=== PATIENT | male | born 1975 | race Asian ===

== ENCOUNTER 2024-03-18 11:31 | Inpatient (IN) | payer OTHER ==
[~2024-03-18] VITALS: Ht 165.1 cm; Wt 66.4 kg
[2024-03-18 12:32] LABS: BASOPHILS % (AUTO) 0.4 % (0.0-2.0); EOSINOPHILS % (AUTO) 1.6 % (1.0-6.0); HEMATOCRIT 44.7 % (41-53); HEMOGLOBIN 14.6 g/dL (13.5-17.5); LYMPHOCYTES # (AUTO) 1.7 K/uL (1.0-4.8); LYMPHOCYTES % (AUTO) 17.6 % (22.0-44.0); MEAN CORPUSCULAR HEMOGLOBIN 29.1 pg (26.0-34.0); MEAN CORPUSCULAR HGB CONC 32.7 G/dL (31.0-37.0); MEAN CORPUSCULAR VOLUME 89 fL (80-100); MONOCYTES # (AUTO) 0.5 K/uL (0.1-1.0); MONOCYTES % (AUTO) 5.6 % (2.0-9.0); NEUTROPHILS # (AUTO) 7.2 K/uL (1.8-7.7); NEUTROPHILS % (AUTO) 74.8 % (40.0-70.0); PLATELET COUNT (AUTO) 311 K/uL (150-450); RED BLOOD CELL COUNT(AUTO) 5.01 MIL/uL (4.50-5.90); RED CELL DISTRIBUTION WIDTH 13.2 % (11.5-14.5); WHITE BLOOD COUNT (AUTO) 9.7 K/uL (4.5-11.0)
[2024-03-18 12:44] LABS: ANION GAP 7 mmol/L (8-16); CALCIUM, TOTAL 9.4 mg/dL (8.8-10.5); CARBON DIOXIDE 28 mmol/L (22-29); CHLORIDE 105 mmol/L (98-107); CREATININE 0.81 mg/dL (0.60-1.30); GLOMERULAR FILTR. RATE CALC > 60 mL/min (>60); GLUCOSE,RANDOM 82 mg/dL (70-110); POTASSIUM 4.1 mmol/L (3.5-5.1); SODIUM SERUM 140 mmol/L (136-145); UREA NITROGEN, BLOOD 17 mg/dL (7-18)
[2024-03-18] MEDS ORDERED: ZOLPIDEM TARTRATE 5 MG TABLET PO PRN (12:45)
[2024-03-18] MEDS ORDERED: MAGNESIUM HYDROXIDE SUSPENSION 30 ML UDCUP PO PRN (12:45)
[2024-03-18 12:48] LABS: ALBUMIN 3.6 g/dL (3.4-5.0); BILIRUBIN,DIRECT 0.2 mg/dL (0.00-0.20); BILIRUBIN,TOTAL 0.7 mg/dL (0.1-1.0); TOTAL PROTEIN, SERUM 7.8 g/dL (6.4-8.2)
[2024-03-18 12:56] LABS: LACTIC ACID 1.4 mmol/L (0.4-2.0); TROPONIN I-HIGH SENSITIVITY 8 ng/L (<76)
[2024-03-18 13:05] LABS: ALCOHOL, BLOOD (SERUM) < 3 mg/dL (0-10)
[2024-03-18] MEDS: VANCOMYCIN 1.25 GM/WATER(PEG) 250 ML IV ONE (13:07)
[2024-03-18] MEDS: CLINDAMYCIN 600 MG/D5% WATER 50 ML IV ONE (13:07)
[2024-03-18 13:26] LABS: COVID AG,FIA SOURCE NASAL SWAB
[2024-03-18 13:53] LABS: INFLUENZA TYPE A NEGATIVE FOR TYPE A (NEGATIVE); INFLUENZA TYPE B NEGATIVE FOR TYPE B (NEGATIVE); SARS-COV2 (COVID) ANTIGEN,FIA Negative (Negative)
[2024-03-18 14:27] VITALS: BP 133/87; PULSE 89; RESP 18; TEMP 97.9; O2SAT 100
[2024-03-18] MEDS ORDERED: SODIUM CHLORIDE 0.9% 500 ML IV ONE (14:35)
[2024-03-18] MEDS: HEPARIN SODIUM,PORCINE 5,000 UNITS/ML VIAL SQ SCH (15:58)
[2024-03-18 20:47] VITALS: BP 129/89; PULSE 101; RESP 18; TEMP 97.7; O2SAT 98
[2024-03-18] MEDS: ACETAMINOPHEN 325 MG TABLET PO PRN (20:51)
[2024-03-19 05:18] VITALS: BP 128/85; PULSE 92; RESP 18; TEMP 97.4; O2SAT 98
[2024-03-19 06:56] LABS: APPEARANCE,URINE CLEAR (CLEAR); BILIRUBIN,URINE NEGATIVE (NEGATIVE); COLOR,URINE YELLOW (YELLOW); GLUCOSE, URINE (UA) NEGATIVE (NEGATIVE); KETONES,URINE NEGATIVE (NEGATIVE); LEUKOCYTE ESTERASE ,URINE NEGATIVE (NEGATIVE); NITRATE,URINE NEGATIVE (NEGATIVE); OCCULT BLOOD,URINE NEGATIVE (NEGATIVE); PH,URINE 5.5 (5.0-8.0); PROTEIN,URINE TRACE mg/dL (NEGATIVE); SPECIFIC GRAVITIY, URINE 1.028 (1.003-1.030); UROBILINOGEN,URINE <=1.0 mg/dL (<=1.0)
[2024-03-19 06:59] LABS: PH,URINE DRUG SCREEN 5.5 (5.0-8.0)
[2024-03-19 07:05] LABS: ALCOHOL, URINE DRUG SCREEN NEGATIVE (NEGATIVE); AMPHET/METH SCREEN,URINE POSITIVE (NEGATIVE); BARBITURATE SCREEN, URINE NEGATIVE (NEGATIVE); BENZODIAZEPINES SCREEN,URINE NEGATIVE (NEGATIVE); CANNABINOID SCREEN,URINE NEGATIVE (NEGATIVE); COCAINE SCREEN,URINE NEGATIVE (NEGATIVE); METHADONE SCREEN, URINE NEGATIVE (NEGATIVE); OPIATE SCREEN,URINE NEGATIVE (NEGATIVE); PHENCYCLIDINE SCREEN,URINE NEGATIVE (NEGATIVE)
[2024-03-19 08:12] VITALS: BP 111/83; PULSE 83; RESP 18; TEMP 97.4; O2SAT 98
[2024-03-19] MEDS: FAMOTIDINE 20 MG TABLET PO SCH (08:13)
[2024-03-19] MEDS: SULFAMETHOX/TRIMETH DS 800-160 MG/TABLET PO SCH (12:33)
[2024-03-19 16:25] VITALS: BP 115/83; PULSE 80; PULSE 93; RESP 20; TEMP 97.6; O2SAT 96; O2SAT 98
[2024-03-19 20:22] VITALS: BP 115/84; PULSE 93; RESP 18; TEMP 97.5; O2SAT 99
[2024-03-20 05:41] VITALS: BP 129/91; PULSE 91; RESP 20; TEMP 97.6; O2SAT 98
[2024-03-20 08:25] VITALS: BP 125/86; PULSE 88; RESP 20; TEMP 98.1; O2SAT 98
[2024-03-20] MEDS: PIPERACILLIN/TAZO 3.375 GM/D5W 50 ML IV SCH (12:28)
[2024-03-20] MEDS: VANCOMYCIN HCL 750 MG in DEXTROSE 5%-WATER 250 ML IV SCH (16:18)
[2024-03-20 17:15] VITALS: BP 129/85; PULSE 85; RESP 20; TEMP 98.7; O2SAT 97
[2024-03-20 20:10] VITALS: BP 124/82; PULSE 93; RESP 18; TEMP 97.8; O2SAT 97
[2024-03-21 05:29] VITALS: BP 126/83; PULSE 80; RESP 18; TEMP 97.9; O2SAT 99
[2024-03-21 06:43] LABS: BASOPHILS % (AUTO) 0.3 % (0.0-2.0); EOSINOPHILS % (AUTO) 2.8 % (1.0-6.0); HEMATOCRIT 42.8 % (41-53); HEMOGLOBIN 14.2 g/dL (13.5-17.5); LYMPHOCYTES # (AUTO) 2.1 K/uL (1.0-4.8); MEAN CORPUSCULAR HEMOGLOBIN 28.9 pg (26.0-34.0); MEAN CORPUSCULAR HGB CONC 33.1 G/dL (31.0-37.0); MEAN CORPUSCULAR VOLUME 87 fL (80-100); MONOCYTES # (AUTO) 0.5 K/uL (0.1-1.0); MONOCYTES % (AUTO) 7.1 % (2.0-9.0); NEUTROPHILS % (AUTO) 58.8 % (40.0-70.0); PLATELET COUNT (AUTO) 298 K/uL (150-450); RED CELL DISTRIBUTION WIDTH 13.2 % (11.5-14.5); WHITE BLOOD COUNT (AUTO) 6.8 K/uL (4.5-11.0)
[2024-03-21 06:49] LABS: ANION GAP 6 mmol/L (8-16); CALCIUM, TOTAL 8.8 mg/dL (8.8-10.5); CARBON DIOXIDE 29 mmol/L (22-29); CHLORIDE 105 mmol/L (98-107); CREATININE 0.99 mg/dL (0.60-1.30); GLOMERULAR FILTR. RATE CALC > 60 mL/min (>60); GLUCOSE,RANDOM 94 mg/dL (70-110); POTASSIUM 3.5 mmol/L (3.5-5.1); SODIUM SERUM 140 mmol/L (136-145); UREA NITROGEN, BLOOD 16 mg/dL (7-18)
[2024-03-21 08:06] VITALS: BP 127/91; PULSE 88; RESP 18; TEMP 97.9; O2SAT 99
[2024-03-21 20:00] VITALS: BP 125/79; PULSE 83; RESP 19; TEMP 98.6; O2SAT 98
[2024-03-22 05:32] VITALS: BP 132/87; PULSE 80; RESP 17; TEMP 97.7; O2SAT 98
[2024-03-22 06:15] LABS: BASOPHILS % (AUTO) 0.6 % (0.0-2.0); HEMATOCRIT 41.3 % (41-53); HEMOGLOBIN 13.9 g/dL (13.5-17.5); LYMPHOCYTES # (AUTO) 2.5 K/uL (1.0-4.8); LYMPHOCYTES % (AUTO) 33.7 % (22.0-44.0); MEAN CORPUSCULAR HEMOGLOBIN 29.3 pg (26.0-34.0); MEAN CORPUSCULAR HGB CONC 33.6 G/dL (31.0-37.0); MEAN CORPUSCULAR VOLUME 87 fL (80-100); MONOCYTES # (AUTO) 0.5 K/uL (0.1-1.0); NEUTROPHILS # (AUTO) 4.2 K/uL (1.8-7.7); NEUTROPHILS % (AUTO) 55.7 % (40.0-70.0); PLATELET COUNT (AUTO) 298 K/uL (150-450); RED BLOOD CELL COUNT(AUTO) 4.74 MIL/uL (4.50-5.90); RED CELL DISTRIBUTION WIDTH 13.2 % (11.5-14.5); WHITE BLOOD COUNT (AUTO) 7.5 K/uL (4.5-11.0)
[2024-03-22 06:28] LABS: ANION GAP 6 mmol/L (8-16); CALCIUM, TOTAL 8.7 mg/dL (8.8-10.5); CARBON DIOXIDE 29 mmol/L (22-29); CHLORIDE 106 mmol/L (98-107); CREATININE 0.92 mg/dL (0.60-1.30); GLOMERULAR FILTR. RATE CALC > 60 mL/min (>60); GLUCOSE,RANDOM 89 mg/dL (70-110); POTASSIUM 3.8 mmol/L (3.5-5.1); SODIUM SERUM 141 mmol/L (136-145); UREA NITROGEN, BLOOD 18 mg/dL (7-18)
[2024-03-22 06:41] LABS: VANCOMYCIN,RANDOM 16.7 mcg/mL (25.0-50.0)
[2024-03-22 08:10] VITALS: BP 114/77; PULSE 83; RESP 18; TEMP 97.6; O2SAT 100
[2024-03-22] MEDS ORDERED: HEPA500018 SQ (12:06)
[2024-03-22] MEDS ORDERED: FAMO20 PO (12:06)
[2024-03-22] MEDS ORDERED: MAGN-169 PO (12:07)
[2024-03-22] MEDS ORDERED: ACET-2247 PO (12:07)
== END 2024-03-22 13:09 | DRG 605 ==
LOC: EMS 11:31 → EDH 13:11 → 6S 14:10
PROVIDERS: ADMIT Internal Medicine; ATTEND Internal Medicine
DX: S80.812A Abrasion, left lower leg, initial encounter (principal); R78.81 Bacteremia; L03.116 Cellulitis of left lower limb; F15.23 Other stimulant dependence with withdrawal; Z20.822 Contact with and (suspected) exposure to COVID-19; S00.01XA Abrasion of scalp, initial encounter; I10 Essential (primary) hypertension; X58.XXXA Exposure to other specified factors, initial encounter; Y93.89 Activity, other specified; Y92.89 Other specified places as the place of occurrence of the external cause; Y99.8 Other external cause status
CPT/HCPCS: 71045; 80048; 80076; 80202; 80307; 81003; 82550; 83605; 83880; 84484; 85025; 87040; 87077; 87186; 87205; 87804; 93005; 93306; 93971; 99285; G0480; J1644; J2543; J3370; J3490; J7040; J7060; 36415-L1; 36415-TC